=== PATIENT | male | born 1945 | race Caucasian/White ===

== ENCOUNTER 2023-03-09 20:19 | Inpatient (IN) | payer OTHER ==
[~2023-03-09] VITALS: Ht 177.8 cm; Wt 44.9 kg
[2023-03-09 22:21] LABS: BASOPHILS % 0.5 % (0.0-2.0); EOSINOPHILS % 0.1 % (0.0-5.0); HEMATOCRIT. 38.4 % (42.0-52.0); HEMOGLOBIN. 13.3 g/dL (14.0-18.0); LYMPHOCYTES % 10.2 % (20.0-50.0); MEAN CORPUSCULAR HEMOGLOBIN 30.4 pg (28.0-32.0); MEAN CORPUSCULAR HGB CONC 34.7 g/dL (31.0-37.0); MEAN CORPUSCULAR VOLUME 87.6 fL (80.0-94.0); MEAN PLATELET VOLUME 8.6 fl (7.4-10.4); MONOCYTES % 11.9 % (2.0-8.0); NEUTROPHILS % 77.3 % (40.0-76.0); PLATELET 280 x1000/uL (130-400); RED BLOOD CELL COUNT 4.38 mill/uL (4.7-6.1); RED CELL DISTRIBUTION WIDTH 15.5 % (11.6-14.6); WHITE BLOOD COUNT 14.7 x1000/uL (4.5-11.0)
[2023-03-09 22:34] LABS: CHLORIDE 90 mEq/L (98-107); INDEX HEMOLYSI 1 (1-3); INDEX ICTERIC 1 (1-4); INDEX LIPEMIC 1 (1-3); POTASSIUM 4.4 mEq/L (3.5-5.1); SODIUM 125 mEq/L (136-145)
[2023-03-09 22:42] LABS: ALANINE AMINOTRANSFERASE 17 IU/L (13-61); ALBUMIN 2.9 g/dL (3.4-5.0); ASPARTATE AMINOTRANSFERASE 47 IU/L (15-37); BILIRUBIN TOTAL 1.1 mg/dL (0.1-1.0); CARBON DIOXIDE 26 mEq/L (21-32); CREATINE KINASE 673 IU/L (39-308); CREATININE 1.2 mg/dL (0.6-1.3); GLUCOSE 125 mg/dL (70-105); UREA NITROGEN BLOOD 20 mg/dL (7-21)
[2023-03-09] MEDS ORDERED: ACETAMINOPHEN 325MG TABLET PO ONE (23:15)
[2023-03-09] MEDS ORDERED: SODIUM CHLORIDE 0.9% 1000ML BAG (SEPSIS BOLUS) IV ONE (23:30)
[2023-03-09] MEDS ORDERED: CEFTRIAXONE 1GM PREMIX 50 ML IV ONE (23:30)
[2023-03-10 00:14] LABS: LACTIC ACID 2.3 mmol/L (0.4-2.0)
[2023-03-10] MEDS ORDERED: ONDANSETRON HCL 4MG/2ML INJ IV PRN (02:15)
[2023-03-10] MEDS ORDERED: MAGNESIUM/ALUMINUM HYDROXIDE/SIMETHICONE 30ML UDC PO PRN (02:15)
[2023-03-10] MEDS ORDERED: GUAIFENESIN 200MG/10ML SUGAR FREE UDC PO PRN (02:15)
[2023-03-10] MEDS ORDERED: ACETAMINOPHEN 325MG TABLET PO PRN ×2 (02:15)
[2023-03-10] MEDS ORDERED: DOCUSATE SODIUM 100MG CAPSULE PO PRN (02:15)
[2023-03-10] MEDS ORDERED: CLONIDINE 0.1MG TABLET PO PRN (02:15)
[2023-03-10] MEDS ORDERED: IPRATROPIUM/ALBUTEROL 0.5-3(2.5)MG/3ML NEB HHN PRN (02:15)
[2023-03-10] MEDS ORDERED: CEFTRIAXONE 1GM PREMIX 50 ML IV NR (02:30)
[2023-03-10] MEDS ORDERED: ACETAMINOPHEN 325MG TABLET PO NR (02:30)
[2023-03-10] MEDS: SODIUM CHLORIDE 0.9% 1,000 ML IV SCH (02:51)
[2023-03-10] MEDS ORDERED: VANCOMYCIN 1G PREMIX 200 ML IV NR (03:15)
[2023-03-10 03:34] LABS: BASOPHILS % 0.6 % (0.0-2.0); HEMATOCRIT. 35.6 % (42.0-52.0); HEMOGLOBIN. 12.3 g/dL (14.0-18.0); LYMPHOCYTES % 10.5 % (20.0-50.0); MEAN CORPUSCULAR HEMOGLOBIN 30.3 pg (28.0-32.0); MEAN CORPUSCULAR HGB CONC 34.5 g/dL (31.0-37.0); MEAN CORPUSCULAR VOLUME 87.8 fL (80.0-94.0); MONOCYTES % 11.4 % (2.0-8.0); NEUTROPHILS % 77.5 % (40.0-76.0); PLATELET 253 x1000/uL (130-400); RED BLOOD CELL COUNT 4.06 mill/uL (4.7-6.1); RED CELL DISTRIBUTION WIDTH 15.3 % (11.6-14.6)
[2023-03-10 03:56] LABS: CHLORIDE 94 mEq/L (98-107); INDEX HEMOLYSI 1 (1-3); INDEX ICTERIC 1 (1-4); INDEX LIPEMIC 1 (1-3); POTASSIUM 4.6 mEq/L (3.5-5.1); SODIUM 129 mEq/L (136-145)
[2023-03-10 04:00] VITALS: BP 89/48; PULSE 71; RESP 18; TEMP 97
[2023-03-10 04:09] LABS: ALANINE AMINOTRANSFERASE 16 IU/L (13-61); ALBUMIN 2.4 g/dL (3.4-5.0); ASPARTATE AMINOTRANSFERASE 45 IU/L (15-37); BILIRUBIN DIRECT 0.3 mg/dL (0.0-0.2); BILIRUBIN TOTAL 0.7 mg/dL (0.1-1.0); CALCIUM 8.1 mg/dL (8.5-10.1); CARBON DIOXIDE 26 mEq/L (21-32); CHOLESTEROL 83 mg/dL (<200); CREATINE KINASE 662 IU/L (39-308); CREATININE 1.2 mg/dL (0.6-1.3); GLUCOSE 118 mg/dL (70-105); HDL CHOLESTEROL 33 mg/dL (40-59); LDL CHOLESTEROL 44 mg/dL (5-100); NT PRO B-TYPE NATRIURETIC PEP 507 pg/mL (5-125); PROTEIN TOTAL 6.1 g/dL (6.0-8.3); T4 FREE 1.31 ng/dL (0.76-1.46); TRIGLYCERIDE 66 mg/dL (0-150); TROPONIN I HIGH SENSITIVITY 11 ng/L (<78); UREA NITROGEN BLOOD 21 mg/dL (7-21)
[2023-03-10] MEDS ORDERED: PIPERACILLIN/TAZ 3.375G PREMIX 50 ML IV NR (06:00)
[2023-03-10] MEDS ORDERED: SODIUM CHLORIDE 0.9% 500 ML IV ONE ×2 (06:30→11:15)
[2023-03-10 08:00] VITALS: BP 92/48; PULSE 72; RESP 17; TEMP 97.1
[2023-03-10] MEDS: ENOXAPARIN 30MG/0.3ML SYR SUBCUT SCH (09:47)
[2023-03-10] MEDS: PANTOPRAZOLE SODIUM 40 MG/VIAL IV SCH (09:47)
[2023-03-10] MEDS ORDERED: VANCOMYCIN 1G PREMIX 200 ML IV SCH (11:00)
[2023-03-10] MEDS ORDERED: SODIUM CHLORIDE 0.9% 500 ML IV NR (11:30)
[2023-03-10 11:47] LABS: CREATINE KINASE 545 IU/L (39-308)
[2023-03-10 12:00] VITALS: BP 89/49; PULSE 69; RESP 17; TEMP 96.9
[2023-03-10] MEDS: PIPERACILLIN/TAZOBACTAM 3.375 G in DEXTROSE 5% WATER 50 ML IV SCH ×2 (12:28→21:41)
[2023-03-10] MEDS ORDERED: PIPERACILLIN/TAZOBACTAM 3.375 G in DEXTROSE 5% WATER 50 ML IV SCH (14:00)
[2023-03-10] MEDS ORDERED: NALOXONE HCL 0.4MG/ML VIAL IV PRN (14:45)
[2023-03-10] MEDS ORDERED: HYDROCODONE/ACETAMINOPHEN 5/325MG TABLET PO PRN (14:45)
[2023-03-10] MEDS ORDERED: MORPHINE SULFATE 2 MG/ML CPJ (NOT FOR IM USE) IV PRN (14:45)
[2023-03-10 16:00] VITALS: BP 87/53; PULSE 70; RESP 16; TEMP 97.5
[2023-03-10 20:00] VITALS: BP 83/47; PULSE 66; RESP 18; TEMP 96.9
[2023-03-10] MEDS: MIRTAZAPINE 15MG TABLET PO SCH (21:02)
[2023-03-11] VITALS: BP 95/55; PULSE 74; RESP 16; TEMP 97.8
[2023-03-11 04:00] VITALS: BP 95/49; PULSE 75; RESP 16; TEMP 97.1
[2023-03-11] MEDS: SODIUM CHLORIDE 0.9% 1,000 ML IV SCH (04:55)
[2023-03-11] MEDS: PIPERACILLIN/TAZOBACTAM 3.375 G in DEXTROSE 5% WATER 50 ML IV SCH ×5 (05:08→21:09)
[2023-03-11] MEDS ORDERED: VANCOMYCIN 750MG PREMIX 150 ML IV SCH (06:00)
[2023-03-11] MEDS ORDERED: VANCOMYCIN 1G PREMIX 200 ML IV SCH (06:00)
[2023-03-11 07:52] LABS: BASOPHILS % 0.5 % (0.0-2.0); EOSINOPHILS % 0.8 % (0.0-5.0); HEMATOCRIT. 33.9 % (42.0-52.0); HEMOGLOBIN. 11.7 g/dL (14.0-18.0); MEAN CORPUSCULAR HEMOGLOBIN 30.5 pg (28.0-32.0); MEAN CORPUSCULAR HGB CONC 34.5 g/dL (31.0-37.0); MEAN CORPUSCULAR VOLUME 88.4 fL (80.0-94.0); MEAN PLATELET VOLUME 8.7 fl (7.4-10.4); MONOCYTES % 13.5 % (2.0-8.0); NEUTROPHILS % 72.2 % (40.0-76.0); PLATELET 258 x1000/uL (130-400); RED BLOOD CELL COUNT 3.83 mill/uL (4.7-6.1); RED CELL DISTRIBUTION WIDTH 15.5 % (11.6-14.6); WHITE BLOOD COUNT 11.1 x1000/uL (4.5-11.0)
[2023-03-11 07:57] LABS: CHLORIDE 95 mEq/L (98-107); INDEX HEMOLYSI 1 (1-3); INDEX ICTERIC 1 (1-4); INDEX LIPEMIC 1 (1-3); POTASSIUM 3.8 mEq/L (3.5-5.1); SODIUM 126 mEq/L (136-145)
[2023-03-11 08:00] VITALS: BP 102/74; PULSE 75; RESP 20; TEMP 97.6
[2023-03-11] MEDS: PANTOPRAZOLE SODIUM 40 MG/VIAL IV SCH (08:06)
[2023-03-11] MEDS: ENOXAPARIN 30MG/0.3ML SYR SUBCUT SCH (08:07)
[2023-03-11 08:08] LABS: CALCIUM 7.9 mg/dL (8.5-10.1); CARBON DIOXIDE 23 mEq/L (21-32); CREATININE 0.6 mg/dL (0.6-1.3); GLUCOSE 96 mg/dL (70-105); IRON 44 ug/dL (50-175); TOTAL IRON BINDING CAPACITY 285 ug/dL (250-450); UREA NITROGEN BLOOD 15 mg/dL (7-21)
[2023-03-11 09:05] LABS: FOLIC ACID (FOLATE) SERUM 4.3 ng/mL (>5.38)
[2023-03-11 12:00] VITALS: BP 89/53; PULSE 74; RESP 17; TEMP 98.1
[2023-03-11 12:44] LABS: *AMPHETAMINES SCREEN URINE NEGATIVE (NEGATIVE); *BARBITURATES SCREEN URINE NEGATIVE (NEGATIVE); *BENZODIAZEPINES SCREEN URINE NEGATIVE (NEGATIVE); *COCAINE SCREEN URINE NEGATIVE (NEGATIVE); CANNABINOID URINE SCREEN NEGATIVE (NEGATIVE); ECSTASY MDMA SCREEN URINE NEGATIVE (NEGATIVE); OPIATES URINE SCREEN NEGATIVE (NEGATIVE); PHENCYCLIDINE URINE SCREEN NEGATIVE (NEGATIVE)
[2023-03-11] MEDS: MIDODRINE HCL 5MG TABLET PO SCH ×2 (12:53→16:28)
[2023-03-11 16:00] VITALS: BP 91/54; PULSE 57; RESP 18; TEMP 97.1
[2023-03-11 20:00] VITALS: BP 97/52; PULSE 71; RESP 17; TEMP 98.3
[2023-03-11] MEDS: MIRTAZAPINE 15MG TABLET PO SCH (21:20)
[2023-03-12] VITALS: BP 109/51; PULSE 74; RESP 17; TEMP 97.9
[2023-03-12] MEDS ORDERED: VANCOMYCIN 750MG PREMIX 150 ML IV SCH
[2023-03-12 04:00] VITALS: BP 100/60; PULSE 70; RESP 18; TEMP 98
[2023-03-12] MEDS: PIPERACILLIN/TAZOBACTAM 3.375 G in DEXTROSE 5% WATER 50 ML IV SCH ×3 (05:06→21:47)
[2023-03-12 06:11] LABS: HEMATOCRIT. 31.5 % (42.0-52.0); HEMOGLOBIN. 11.3 g/dL (14.0-18.0); MEAN CORPUSCULAR HEMOGLOBIN 31.6 pg (28.0-32.0); MEAN CORPUSCULAR HGB CONC 35.8 g/dL (31.0-37.0); MEAN CORPUSCULAR VOLUME 88.2 fL (80.0-94.0); MEAN PLATELET VOLUME 8.3 fl (7.4-10.4); PLATELET 258 x1000/uL (130-400); RED BLOOD CELL COUNT 3.57 mill/uL (4.7-6.1); RED CELL DISTRIBUTION WIDTH 15.3 % (11.6-14.6); WHITE BLOOD COUNT 8.7 x1000/uL (4.5-11.0)
[2023-03-12] MEDS: PANTOPRAZOLE 40MG DR TABLET PO SCH ×3 (06:13→12:09)
[2023-03-12 06:31] LABS: CHLORIDE 97 mEq/L (98-107); INDEX HEMOLYSI 1 (1-3); INDEX ICTERIC 1 (1-4); INDEX LIPEMIC 1 (1-3); POTASSIUM 3.8 mEq/L (3.5-5.1); SODIUM 130 mEq/L (136-145)
[2023-03-12 06:33] LABS: DIFFERENTIAL COMMENT 1
[2023-03-12 06:38] LABS: CALCIUM 7.7 mg/dL (8.5-10.1); CARBON DIOXIDE 27 mEq/L (21-32); CREATININE 0.8 mg/dL (0.6-1.3); GLUCOSE 92 mg/dL (70-105); UREA NITROGEN BLOOD 14 mg/dL (7-21)
[2023-03-12] MEDS: ENOXAPARIN 30MG/0.3ML SYR SUBCUT SCH (09:00)
[2023-03-12 10:18] LABS: PLATELET ESTIMATE NORMAL
[2023-03-12 12:00] VITALS: BP 95/55; PULSE 74; RESP 18; TEMP 97.3
[2023-03-12] MEDS: MIDODRINE HCL 5MG TABLET PO SCH ×2 (12:11→17:28)
[2023-03-12] MEDS: FOLIC ACID 1MG TABLET PO SCH (12:13)
[2023-03-12] MEDS: CYANOCOBALAMIN 1000MCG/ML VIAL IM SCH (12:14)
[2023-03-12] MEDS: POLYETHYLENE GLYCOL 3350 (17GM) 1 DOSE PACK PO SCH (12:14)
[2023-03-12] MEDS: VANCOMYCIN 750MG PREMIX 150 ML IV SCH (12:25)
[2023-03-12] MEDS ORDERED: MIDO5TAB4 PO (12:26)
[2023-03-12] MEDS ORDERED: POLY17PO43 PO (12:26)
[2023-03-12] MEDS ORDERED: FOLI-43 PO (12:26)
[2023-03-12] MEDS ORDERED: FERR-63 PO (12:26)
[2023-03-12] MEDS ORDERED: TOPUD PO (12:26)
[2023-03-12] MEDS ORDERED: MIRT-89 PO (12:26)
[2023-03-12] MEDS ORDERED: PANT40TA51 PO (12:26)
[2023-03-12 14:45] LABS: INDEX HEMOLYSI 1 (1-3)
[2023-03-12 14:52] LABS: CREATINE KINASE 153 IU/L (39-308)
[2023-03-12 15:58] VITALS: BP 98/50; PULSE 69; RESP 20; TEMP 97
[2023-03-12 20:00] VITALS: BP 93/57; PULSE 95; RESP 18; TEMP 97.7
[2023-03-12] MEDS: SODIUM CHLORIDE 0.9% 1,000 ML IV SCH (21:20)
[2023-03-12] MEDS: MIRTAZAPINE 15MG TABLET PO SCH (21:47)
[2023-03-13] VITALS: BP 101/62; PULSE 79; RESP 19; TEMP 97.7
[2023-03-13] MEDS: VANCOMYCIN 750MG PREMIX 150 ML IV SCH ×2 (02:33→11:30)
[2023-03-13 04:00] VITALS: BP 98/54; PULSE 66; RESP 19; TEMP 97.5
[2023-03-13] MEDS: PIPERACILLIN/TAZOBACTAM 3.375 G in DEXTROSE 5% WATER 50 ML IV SCH ×2 (07:22→22:08)
[2023-03-13 08:00] VITALS: BP 95/53; PULSE 63; RESP 17; TEMP 96
[2023-03-13 08:11] LABS: HEMATOCRIT. 33.9 % (42.0-52.0); HEMOGLOBIN. 11.9 g/dL (14.0-18.0); MEAN CORPUSCULAR HEMOGLOBIN 31.7 pg (28.0-32.0); MEAN CORPUSCULAR HGB CONC 35.3 g/dL (31.0-37.0); MEAN CORPUSCULAR VOLUME 89.9 fL (80.0-94.0); MEAN PLATELET VOLUME 8.6 fl (7.4-10.4); PLATELET 282 x1000/uL (130-400); RED BLOOD CELL COUNT 3.77 mill/uL (4.7-6.1); RED CELL DISTRIBUTION WIDTH 15.7 % (11.6-14.6); WHITE BLOOD COUNT 7.9 x1000/uL (4.5-11.0)
[2023-03-13 08:24] LABS: DIFFERENTIAL COMMENT 1
[2023-03-13] MEDS ORDERED: FERROUS SULFATE 325MG TABLET PO SCH (09:00)
[2023-03-13] MEDS: POLYETHYLENE GLYCOL 3350 (17GM) 1 DOSE PACK PO SCH (09:02)
[2023-03-13] MEDS: CYANOCOBALAMIN 1000MCG/ML VIAL IM SCH (09:02)
[2023-03-13] MEDS: FOLIC ACID 1MG TABLET PO SCH (09:02)
[2023-03-13] MEDS: MIDODRINE HCL 5MG TABLET PO SCH ×3 (09:03→17:37)
[2023-03-13] MEDS: ENOXAPARIN 30MG/0.3ML SYR SUBCUT SCH (09:03)
[2023-03-13 09:14] LABS: CHLORIDE 98 mEq/L (98-107); INDEX HEMOLYSI 1 (1-3); INDEX ICTERIC 1 (1-4); INDEX LIPEMIC 1 (1-3); POTASSIUM 3.9 mEq/L (3.5-5.1); SODIUM 130 mEq/L (136-145)
[2023-03-13 09:16] LABS: CALCIUM 8.4 mg/dL (8.5-10.1)
[2023-03-13 09:22] LABS: CARBON DIOXIDE 23 mEq/L (21-32); CREATININE 0.6 mg/dL (0.6-1.3); GLUCOSE 90 mg/dL (70-105); UREA NITROGEN BLOOD 15 mg/dL (7-21)
[2023-03-13] MEDS: SODIUM CHLORIDE 0.9% 1,000 ML IV SCH ×2 (10:15→23:35)
[2023-03-13 12:00] VITALS: BP 97/64; PULSE 68; RESP 18; TEMP 96.6
[2023-03-13 16:00] VITALS: BP 90/59; PULSE 71; RESP 18; TEMP 97.4
[2023-03-13 17:47] LABS: PLATELET ESTIMATE NORMAL
[2023-03-13] MEDS: MIRTAZAPINE 15MG TABLET PO SCH (21:00)
[2023-03-14] VITALS: BP 93/70; PULSE 70; RESP 18; TEMP 97.7
[2023-03-14] MEDS: VANCOMYCIN 750MG PREMIX 150 ML IV SCH (04:05)
[2023-03-14] MEDS: PIPERACILLIN/TAZOBACTAM 3.375 G in DEXTROSE 5% WATER 50 ML IV SCH ×2 (06:00→06:17)
[2023-03-14] MEDS: PANTOPRAZOLE 40MG DR TABLET PO SCH (06:30)
[2023-03-14 08:00] VITALS: BP 103/58; PULSE 82; RESP 19; TEMP 96.7
[2023-03-14] MEDS: POLYETHYLENE GLYCOL 3350 (17GM) 1 DOSE PACK PO SCH (08:16)
[2023-03-14] MEDS: CYANOCOBALAMIN 1000MCG/ML VIAL IM SCH (08:17)
[2023-03-14] MEDS: FOLIC ACID 1MG TABLET PO SCH (08:18)
[2023-03-14] MEDS: MIDODRINE HCL 5MG TABLET PO SCH ×2 (08:18→13:04)
[2023-03-14] MEDS: ENOXAPARIN 30MG/0.3ML SYR SUBCUT SCH (08:18)
[2023-03-14 10:41] VITALS: BP 103/58; PULSE 85; TEMP 96.7; O2SAT 96
[2023-03-14 12:00] VITALS: BP 106/64; PULSE 60; RESP 22; TEMP 96.7
[2023-03-14] MEDS ORDERED: VANCOMYCIN 750MG PREMIX 150 ML IV SCH (21:00)
== END 2023-03-14 13:45 | disposition home health service (06) | DRG 871 ==
LOC: EDBD 20:19 → ER 20:19 → EDBEDREQTM 03-10 00:47 → EDBEDREQ 03-10 00:47 → ER 03-10 04:06 → 4WST 03-10 06:06
PROVIDERS: ADMIT Internal Medicine; ATTEND Internal Medicine
DX: A41.9 Sepsis, unspecified organism (principal); E43 Unspecified severe protein-calorie malnutrition; J18.9 Pneumonia, unspecified organism; J96.00 Acute respiratory failure, unspecified whether with hypoxia or hypercapnia; S42.211A Unspecified displaced fracture of surgical neck of right humerus, initial encounter for closed fracture; M62.82 Rhabdomyolysis; E87.1 Hypo-osmolality and hyponatremia; E87.20 Acidosis, unspecified; Z68.1 Body mass index [BMI] 19.9 or less, adult; J44.0 Chronic obstructive pulmonary disease with (acute) lower respiratory infection; R62.7 Adult failure to thrive; F17.210 Nicotine dependence, cigarettes, uncomplicated; I10 Essential (primary) hypertension; I49.1 Atrial premature depolarization; I95.9 Hypotension, unspecified; D50.9 Iron deficiency anemia, unspecified; R65.20 Severe sepsis without septic shock; D72.821 Monocytosis (symptomatic); R74.01 Elevation of levels of liver transaminase levels; R73.9 Hyperglycemia, unspecified; E86.0 Dehydration; E53.8 Deficiency of other specified B group vitamins; Z79.899 Other long term (current) drug therapy; W18.39XA Other fall on same level, initial encounter; Y93.89 Activity, other specified; Y92.89 Other specified places as the place of occurrence of the external cause; Y99.8 Other external cause status
CPT/HCPCS: 36415; 71045; 73030; 73060; 76700; 80048; 80053; 80061; 80076; 80202; 80305; 82533; 82550; 82607; 82728; 82746; 83036; 83540; 83550; 83605; 83880; 84145; 84153; 84439; 84443; 84484; 85025; 92610; 93005; 93306; 97162; 97166; 97530; 97760; 99291; C1893; C9113; J0696; J1650; J2543; J3370; J3420; J7030; J7060; L3670; G0103